=== PATIENT | male | born 1980 | race Caucasian/White ===

== ENCOUNTER 2018-12-31 18:52 | Emergency (ER) | payer SELFPAY ==
[2018-12-31] MEDS ORDERED: Fluorescein Opthalmic Strip ONE (19:18)
[2018-12-31] MEDS ORDERED: Proparacaine 0.5% Opth 15 ML BOT ONE (19:18)
[2018-12-31 19:56] LABS: #Basophils 0.1 thou/uL (0.0-0.2); #Eosinphils 0.1 thou/uL (0.0-0.7); #Lymphocytes 2.4 thou/uL (1.20-3.40); #Monocytes 0.6 thou/uL (0.11-0.59); #Neutrophils 4.9 thou/uL (1.40-6.50); %Basophils 0.8 % (0.0-1.0); %Eosinophils 0.7 % (0.0-10.0); %Lymphocytes 30.3 % (21.0-51.0); %Monocytes 7.5 % (0.0-10.0); %Neutrophils 60.7 % (42.0-75.0); Hemoglobin 16.1 g/dL (14.0-18.0); Mean Corpuscular HGB CONC 33.2 g/dL (32.0-36.0); Mean Corpuscular Hemoglobin 29.3 pg (27.0-31.0); Mean Platelet Volume 8.3 fL (7.4-10.4); Platelet Count 261 thou/uL (130-400); RBC Distribution Width 10.8 % (11.5-14.5); Red Blood Cell (RBC) Count 5.51 mill/uL (4.70-6.10)
[2018-12-31 20:17] LABS: Anion Gap 16 mmol/L (10-20); BUN (Urea Nitrogen) 15 mg/dL (8.9-20.6); Calc. Creatinine Clearance 0 mL/min (70-130); Carbon Dioxide 26 mmol/L (22-29); Chloride 95 mmol/L (98-107); Estimated GFR-MDRD 85; Glucose 324 mg/dL (70-105); Potassium 4.2 mmol/L (3.5-5.1); Sodium 133 mmol/L (136-145)
--- NOTE | 2018-12-31 21:01 | CT ---
CT HEAD NONCONTRAST 12/31/18 INDICATION: Visual change. FINDINGS: There is no ventriculomegaly, mass effect, midline shift or acute intracranial hemorrhage. IMPRESSION: No acute intracranial abnormalities. POS: CLARA
--- NOTE | 2018-12-31 21:06 | CT ---
CT ORBITS WITH CONTRAST 12/31/18 INDICATION: Preseptal cellulitis. FINDINGS: There is no drainable abscess. No retrobulbar hematoma. Orbital contents are grossly unremarkable. There is mild right sided preseptal soft tissue density indicating cellulitis and/or contusion/edema. IMPRESSION: Preseptal density on the right, which may relate to cellulitis/edema or contusion. Correlate clinical ly. No drainable abscess. POS: CLARA
[2018-12-31] MEDS ORDERED: Ketorolac Tromethamine 30 MG/ML VIAL ONE (21:17)
== END 2018-12-31 21:23 | disposition home or self-care (01) ==
LOC: ERS 18:52
DX: L03.213 Periorbital cellulitis (principal); E11.9 Type 2 diabetes mellitus without complications; Z79.84 Long term (current) use of oral hypoglycemic drugs
CPT/HCPCS: 70450; 70481; 80048; 85025; 96374; J1885

== ENCOUNTER 2019-02-20 16:46 | Emergency (ER) | payer SELFPAY ==
[2019-02-20] MEDS ORDERED: Lidocaine 1% w/Epinephrine 1:100K 20 ML VIAL ONE (17:16)
== END 2019-02-20 19:25 | disposition home or self-care (01) ==
LOC: ERS 16:46
DX: L02.31 Cutaneous abscess of buttock (principal); E11.9 Type 2 diabetes mellitus without complications; Z87.442 Personal history of urinary calculi
CPT/HCPCS: 10060; J2001

== ENCOUNTER 2020-11-09 08:50 | Emergency (ER) | payer SELFPAY ==
[2020-11-09] MEDS ORDERED: Cefepime 2 GM VIAL ONE (09:19)
[2020-11-09 09:41] LABS: #Basophils 0.1 thou/uL (0.0-0.2); #Eosinphils 0.1 thou/uL (0.0-0.7); #Lymphocytes 1.6 thou/uL (1.20-3.40); #Monocytes 0.6 thou/uL (0.11-0.59); #Neutrophils 5.7 thou/uL (1.40-6.50); %Basophils 0.6 % (0.0-1.0); %Eosinophils 1.6 % (0.0-10.0); %Monocytes 7.3 % (0.0-10.0); %Neutrophils 70.5 % (42.0-75.0); Hemoglobin 13.9 g/dL (14.0-18.0); Mean Corpuscular HGB CONC 33.7 g/dL (32.0-36.0); Mean Corpuscular Hemoglobin 29.4 pg (27.0-31.0); Mean Corpuscular Volume 87.1 fL (78.0-98.0); Mean Platelet Volume 8.5 fL (7.4-10.4); Platelet Count 247 thou/uL (130-400); RBC Distribution Width 10.8 % (11.5-14.5); Red Blood Cell (RBC) Count 4.73 mill/uL (4.70-6.10); White Blood Cell (WBC) Count 8.1 thou/uL (4.8-10.8)
[2020-11-09 10:00] LABS: ALT (SGPT) 11 U/L (8-55); AST (SGOT) 9 U/L (5-34); Albumin 3.7 g/dL (3.5-5.0); Alkaline Phosphatase 102 U/L (40-110); Anion Gap 14 mmol/L (10-20); BUN (Urea Nitrogen) 15 mg/dL (8.9-20.6); Bilirubin, Total 0.7 mg/dL (0.2-1.2); Calc. Creatinine Clearance 0 mL/min (70-130); Calcium 8.9 mg/dL (7.8-10.44); Carbon Dioxide 28 mmol/L (22-29); Chloride 94 mmol/L (98-107); Globulin 3.8 g/dL (2.4-3.5); Glucose 422 mg/dL (70-105); Potassium 4.8 mmol/L (3.5-5.1); Protein, Total 7.5 g/dL (6.0-8.3); Sodium 131 mmol/L (136-145)
[2020-11-09] MEDS ORDERED: Insulin Regular 300 UNITS/3 ML VIAL ONE (10:25)
== END 2020-11-09 12:52 | disposition home or self-care (01) ==
LOC: ERS 08:50
DX: S81.801A Unspecified open wound, right lower leg, initial encounter (principal); L03.116 Cellulitis of left lower limb; E11.9 Type 2 diabetes mellitus without complications; Z79.4 Long term (current) use of insulin; W54.8XXA Other contact with dog, initial encounter
CPT/HCPCS: 80053; 85025; 87070; 87077; 87186; 87205; 96365; 96366; 96367; 96375; J0692; J1815; J3370; J7030